=== PATIENT | female | born 1945 | race Caucasian/White ===

== ENCOUNTER → 2019-08-24 08:43 | Outpatient (CLI) | payer MEDICARE, MEDICAID, SELFPAY ==
--- NOTE | 2019-08-24 08:50 | RDU_ITS ---
Reason For Study: hypertensive urgency Right Renal Artery Left Renal Artery Right renal artery ostium 83.4/26.4 Left renal artery ostium 79.5/20.2 RSV/EDV. PSV/EDV. Right renal artery proximal Left renal artery proximal PSV/EDV 93.8/16.1 PSV/EDV. 77.3/26.8 . Right renal artery mid 80.8/16.1 Left renal artery mid 79.5/15.8 PSV/EDV. PSV/EDV . Right renal artery distal 65.3/21.2 Left renal artery distal 91.2/23.3 PSV/EDV. PSV/EDV. Right Renal Parenchyma Left Renal Parenchyma Upper Pole Medula 24.8/6.7 PSV/EDV. Left upper pole medulla 14.8/5.7 Right upper pole medulla EDR .27 . PSV/EDV . Right upper pole medulla R.I. .73 . Left upper pole medulla EDR .38 . Upper Chance Cortx 21.0/6.7 PSV/EDV. Left upper pole medulla R.I. .62 . Right upper pole cortex EDR .32 . UP Cortex 14.8/5.7 PSV/EDV. Right upper pole cortex R.I. .68 . Left upper pole cortex EDR .38 . Right lower Pole medulla 21.0/6.7 Left upper pole cortex R.I. .62 . PSV/EDV . Left lower Pole medulla 19.4/6.6 Right lower pole medulla EDR .32 . PSV/EDV . Right lower pole medulla R.I. .68 . Left lower pole medulla EDR .34 . Lower Pole Cortex 11.9/5.4 PSV/EDV. Left lower pole medulla R.I. .66 . Right lower pole cortex EDR .46 . Lower Pole Cortx 13.9/5.7 PSV/EDV. Right lower pole cortex R.I. .54 . Left lower pole cortex EDR .41 . Right Renal Hilar Left lower pole cortex R.I. .59 . Right Hilar avg 32.6/9.3 PSV/EDV. Left Renal Hilar Right hilar acceleration time 40.0 LT Hilar avg 45.8/11.1 PSV/EDV . m/sec. Left hilar acceleration time 70.0 Right Renal Dimensions m/sec. Right kidney size 10.4 cm . Left Renal Dimensions Right cortical dimension 1.03 cm . Left kidney size 8.1 cm . Multiple hypoechoic areas on the Left cortical dimension 1.38 cm . right kidney. Multiple hypoechoic areas on the left kidney. Aorta Proximal abdominal aorta 1.27 x 1.27 cm . Proximal abdominal aorta peak systolic velocity is 162.4 cm/sec . Distal abdominal aorta 1.61 x 1.69 cm . Distal abdominal aorta peak systolic velocity is 126.8 cm/sec . Normal renal veins bilat. Interpretation Summary Dimensions of the intra-abdominal aorta appear normal, without evidence of aneurysmal dilatation. Renal artery velocities are bilaterally normal. Acceleration times are normal bilaterally. There is no evidence of hemodynamically significant renal artery stenosis on either side. Renovascular resistance appears to be bilaterally normal . Cortical dimensions are bilaterally normal. The right kidney is normal in size. The left kidney is small in size. Multiple hypoechoic structures are noted in the kidneys bilaterally. These may represent renal cysts. Clinical correlation is advised. Ordering Physician: Celio Brewer Performed By: Young Lucero RVT
== END ==
PROVIDERS: Referring Provider Internal Medicine Nephrology; Visit Provider Internal Medicine Nephrology
DX: I10 Essential (primary) hypertension (principal)
CPT/HCPCS: 93975

== ENCOUNTER → 2022-01-03 | Outpatient (REF) | payer SELFPAY ==
[2022-01-03 08:40] LABS: Absolute Lymphocyte Count 1.51 X10^3/uL (0.83-4.51); Absolute Neutrophil Count 3.3 X10^3/uL (2.0-7.7); Basophil# 0.06 X10^3/uL; Basophil% 1.1 % (0-1); Eosinophil# 0.15 X10^3/uL; Eosinophils% 2.7 % (0-5); Hematocrit 27.4 % (37-47); Lymphocyte # 1.51 X10^3/ul (0.83-4.51); Lymphocyte % 26.7 % (19-41); Mean Corp Hgb Conc 29.2 g/dL (32-36); Mean Corpuscular Hgb 29.5 pg (27.0-32.0); Mean Corpuscular Volume 101.1 fL (81-99); Mean Platelet Vol. 10.1 fl (6.2-12.0); Monocyte% 10.6 % (0-10); NRBC Flagged by Analyzer 0 % (0-5); Neutrophil # 3.27 X10^3/uL (2.7-7.7); Neutrophil % 57.8 % (47-70); Platelet Count 342 K/mm3 (150-450); RBC Distribution Width CV 18.6 % (11.6-14.6); RBC Distribution Width SD 64.4 fl (35.1-43.9); Red Blood Count 2.71 M/mm3 (4.2-5.4); White Blood Count 5.7 K/mm3 (4.4-11.0)
[2022-01-03 08:47] LABS: Anion Gap 2 (5-15); BUN 30 mg/dL (7-18); BUN/Creat Ratio 6.9 RATIO (10-20); Calcium,Total 10.3 mg/dL (8.5-10.1); Chloride 107 mmol/L (98-107); Creatinine, Serum 4.35 mg/dL (0.55-1.02); EST Glomerular Filtration Rate 11 mL/min (>60); Est Glom Filt Rate - Afr Amer 13 mL/min (>60); Glucose 60 mg/dL (74-106); Potassium 4.6 mmol/L (3.5-5.1); Sodium Level 143 mmol/L (136-145)
== END | disposition home or self-care (01) ==
LOC: OLS.SW300 05:57
PROVIDERS: Visit Provider Internal Medicine
DX: N18.6 End stage renal disease (principal); Z99.2 Dependence on renal dialysis; K86.2 Cyst of pancreas
CPT/HCPCS: 36415; 80048; 85025

== ENCOUNTER → 2022-01-09 | Outpatient (REF) | payer SELFPAY ==
[2022-01-09 09:20] LABS: Absolute Lymphocyte Count 1.18 X10^3/uL (0.83-4.51); Absolute Neutrophil Count 10.1 X10^3/uL (2.0-7.7); Basophil# 0.03 X10^3/uL; Basophil% 0.2 % (0-1); Eosinophil# 0.11 X10^3/uL; Eosinophils% 0.9 % (0-5); Hematocrit 26.2 % (37-47); Hemoglobin 7.7 g/dL (12.0-15.0); Lymphocyte # 1.18 X10^3/ul (0.83-4.51); Lymphocyte % 9.5 % (19-41); Mean Corp Hgb Conc 29.4 g/dL (32-36); Mean Corpuscular Volume 101.9 fL (81-99); Mean Platelet Vol. 11.6 fl (6.2-12.0); Monocyte# 0.83 X10^3/uL; Monocyte% 6.7 % (0-10); NRBC Flagged by Analyzer 0.2 % (0-5); Neutrophil # 10.12 X10^3/uL (2.7-7.7); Neutrophil % 81.8 % (47-70); POSITIVE MORPHOLOGY YES; Platelet Count 210 K/mm3 (150-450); RBC Distribution Width CV 18.2 % (11.6-14.6); RBC Distribution Width SD 65.5 fl (35.1-43.9); Red Blood Count 2.57 M/mm3 (4.2-5.4); White Blood Count 12.4 K/mm3 (4.4-11.0)
[2022-01-09 09:22] LABS: Differential Indicated SCAN CRITERIA MET
[2022-01-09 09:30] LABS: Amylase 66 U/L (25-115); BUN 42 mg/dL (7-18); BUN/Creat Ratio 9.3 RATIO (10-20); Calcium,Total 9.4 mg/dL (8.5-10.1); Chloride 102 mmol/L (98-107); Creatinine, Serum 4.53 mg/dL (0.55-1.02); EST Glomerular Filtration Rate 10 mL/min (>60); Est Glom Filt Rate - Afr Amer 12 mL/min (>60); Glucose 80 mg/dL (74-106); Lipase 240 U/L (73-393); Phosphorus 2.9 mg/dL (2.5-4.9); Potassium 4.1 mmol/L (3.5-5.1); Sodium Level 138 mmol/L (136-145)
[2022-01-09 10:48] LABS: Differential Comment SCANNED
[2022-01-09 10:49] LABS: Anisocytosis 2+; Macrocytosis 1+; Microcytosis 1+
== END | disposition home or self-care (01) ==
LOC: OLS.SW300 05:00
PROVIDERS: Visit Provider Internal Medicine
DX: R68.89 Other general symptoms and signs (principal); Z13.228 Encounter for screening for other metabolic disorders
CPT/HCPCS: 36415; 80069; 82150; 83690; 85025

== ENCOUNTER → 2022-01-10 | Outpatient (REF) | payer SELFPAY ==
[2022-01-10 19:57] LABS: AST(SGOT) 17 U/L (15-37); Alanine Aminotransfer ALT/SGPT 13 U/L (13-56); Alkaline Phosphatase 117 U/L (45-117); Bilirubin, Direct 0.09 mg/dL (0.00-0.30); Cholesterol 87 mg/dL (200); High Density Lipoprotein 32 mg/dL; Triglycerides 93 mg/dL; Very Low Density Lipoprotein 19 mg/dL (5-40)
== END | disposition home or self-care (01) ==
LOC: OLS.SW300 15:05
PROVIDERS: Referring Provider Internal Medicine; Visit Provider Internal Medicine
DX: R53.83 Other fatigue (principal); R41.0 Disorientation, unspecified; I95.9 Hypotension, unspecified
CPT/HCPCS: 36415; 80061; 80076

== ENCOUNTER → 2022-01-15 | Outpatient (REF) | payer SELFPAY ==
[2022-01-15 07:34] LABS: Hematocrit 27.9 % (37-47); Hemoglobin 8.1 g/dL (12.0-15.0); Mean Corpuscular Hgb 28.7 pg (27.0-32.0); Mean Corpuscular Volume 98.9 fL (81-99); Mean Platelet Vol. 10.8 fl (6.2-12.0); POSITIVE MORPHOLOGY YES; Platelet Count 132 K/mm3 (150-450); RBC Distribution Width CV 18.6 % (11.6-14.6); RBC Distribution Width SD 65.5 fl (35.1-43.9); Red Blood Count 2.82 M/mm3 (4.2-5.4); White Blood Count 8.2 K/mm3 (4.4-11.0)
[2022-01-16 07:45] LABS: Amylase 110 U/L (25-115); BUN 36 mg/dL (7-18); BUN/Creat Ratio 8.5 RATIO (10-20); Calcium,Total 9.2 mg/dL (8.5-10.1); Chloride 100 mmol/L (98-107); Creatinine, Serum 4.22 mg/dL (0.55-1.02); EST Glomerular Filtration Rate 11 mL/min (>60); Est Glom Filt Rate - Afr Amer 13 mL/min (>60); Glucose 90 mg/dL (74-106); Lipase 392 U/L (73-393); Potassium 4.1 mmol/L (3.5-5.1); Sodium Level 142 mmol/L (136-145)
[2022-01-16 08:07] LABS: Basophil% 0.4 % (0-1); Eosinophils% 0.4 % (0-5); Monocyte% 7.8 % (0-10); Neutrophil % 67.2 % (47-70)
[2022-01-16 08:08] LABS: Absolute Lymphocyte Count 1.89 X10^3/uL (0.83-4.51); Absolute Neutrophil Count 5.5 X10^3/uL (2.0-7.7); Basophil# 0.03 X10^3/uL; Eosinophil# 0.03 X10^3/uL; Lymphocyte # 1.89 X10^3/ul (0.83-4.51); Monocyte# 0.64 X10^3/uL; Neutrophil # 5.51 X10^3/uL (2.7-7.7)
[2022-01-16 09:25] LABS: Vitamin D,25 Hydroxy 50.2 ng/mL
== END | disposition home or self-care (01) ==
LOC: OLS.SW300 06:30
PROVIDERS: Visit Provider Internal Medicine
DX: I12.0 Hypertensive chronic kidney disease with stage 5 chronic kidney disease or end stage renal disease (principal); R68.89 Other general symptoms and signs; Z13.228 Encounter for screening for other metabolic disorders; N18.9 Chronic kidney disease, unspecified
CPT/HCPCS: 36415; 80069; 82150; 82306; 83690; 85025

== ENCOUNTER 2022-01-16 14:11 | Emergency (ER) | payer MEDICARE, MEDICAID, SELFPAY ==
[2022-01-16 14:12] VITALS: BP 84/66; PULSE 90; RESP 10; TEMP 36.7; O2SAT 99; BMI 20.2
[2022-01-16 14:16] VITALS: BP 91/62; PULSE 91; RESP 23; O2SAT 99
--- NOTE | 2022-01-16 14:40 | CT_ITS ---
STUDY: CT ABDOMEN AND PELVIS WITHOUT CONTRAST REASON FOR EXAM: Female, 76 years old. pain, EMESIS 2-3 DAYS RADIATION DOSAGE (If Supplied By Facility): CTDIvol = ( 6.08 ) mGy, DLP = ( 440.36 ) mGycm TECHNIQUE: Transaxial images were obtained from the dome of the diaphragm to the symphysis pubis without oral contrast, and without intravenous contrast. Sagittal and coronal images were reconstructed. Individualized dose optimization techniques were used for this CT. COMPARISON: None. FINDINGS: Small left pleural effusion with compressive atelectasis. The visualized portions of the heart are within normal limits. Extensive linear air throughout the liver extending to the periphery compatible with portal venous gas. Gallbladder is surgically absent. Dilation of the extrahepatic bile duct measures up to 10 mm. Multiple hepatic cysts. No required imaging follow-up needed given high likelihood of benign nature. Normal spleen. The pancreas is atrophic. The pancreatic head, there is a cystic structure measuring 1.7 cm just medial to the common duct on image 58 of series 2. Normal bilateral adrenal glands. Bilateral simple renal cysts. No required imaging follow-up needed given high likelihood of benign nature. No hydronephrosis. Bilateral renal cortical atrophy. Gastric wall thickening with nondependent air seen along the periphery of the stomach (image 75 series 2) suggesting gastric pneumatosis. Wall thickening of the distal stomach extending into the proximal duodenum (image 67 series 2), just adjacent to the ampulla. No dilated loops of small bowel. There are multiple colonic diverticula consistent with diverticulosis. The appendix is not seen. There is diffuse atherosclerotic calcification of the abdominal aorta, without a demonstrated aneurysm. Normal inferior vena cava. Normal retroperitoneum. Normal urinary bladder. Normal abdominal wall. Degenerative changes of the lumbar spine. CT/Abdomen/Pelvis without Cont IMPRESSION: 1. 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 Portal venous gas. Surgical consultation recommended. 2. 1.7 cm cystic lesion of the pancreatic head. Pancreatic protocol MRI recommended. 3. Chronic changes, as above. Electronically Signed: Miguel Bilss MD ([place]) at 15:41 EDT ,
--- NOTE | 2022-01-16 14:41 | EKG12_ITS ---
Test Reason : Blood Pressure : / mmHG Vent. Rate : 090 BPM Atrial Rate : 090 BPM P-R Int : 120 ms QRS Dur : 078 ms QT Int : 370 ms P-R-T Axes : 060 001 027 degrees QTc Int : 452 ms Normal sinus rhythm Low voltage QRS Nonspecific ST abnormality Abnormal ECG Confirmed by SHELLEY MESSER, FLAVIO ([id number]), health editor GERMAN WELLS ([id number]) on 01/17/2022 11:11:03 AM Referred By: SCOTT Confirmed By:FLAVIO ROSA MD
--- NOTE | 2022-01-16 14:43 | EDS_ITS ---
HPI HPI - GI History of Present Illness Chief Complaint: GI Bleed Informant: patient Narrative Narrative: Patient presents with not feeling well for about a week. It sounds like she has been vomiting some black material occasionally red for a few days to a week. She is at a nursing facility. She has not yet been seen for this. It appears as though she may have dropped her blood pressure after dialysis today and vomited some black material which prompted her arrival here. However, she has had symptoms that started about a week ago originally. Patient denies history of GI bleed. She has had pancreatitis for unknown reasons. She has on Eliquis which she states is her intermittent atrial fibrillation although that is not on her diagnosis list. Patient had a left total knee replacement back in September at [facility]. Few days after surgery she fell and broke her right patella. This prevented returning home and rehab. She has been in care home since then. She is on dialysis this predated her surgery. According to her chart she gets dialysis Friday, Friday, Friday and Friday. [facility] Medical History (Updated 01/16/22 @ 20:[address] Baldemar Garcia MD) Acute respiratory failure with hypoxia Anemia Anemia in chronic kidney disease Anxiety Anxiety disorder, unspecified ARDS (adult respiratory distress syndrome) Dependence on renal dialysis Depression Disease of pancreas, unspecified End stage renal disease Gastro-esophageal reflux disease without esophagitis GERD (gastroesophageal reflux disease) Hyperlipidemia Hypertension Hypertensive chronic kidney disease with stage 5 chronic kidney disease or end stage renal disease Hypo-osmolality and hyponatremia Hypotension, unspecified Idiopathic gout, unspecified site Insomnia, unspecified Other acute pancreatitis without necrosis or infection Other constipation Pain in left knee Pain in right knee Pneumonitis due to inhalation of food and vomit Unspecified abdominal pain Unspecified ovarian cyst, left side Home Medications allopurinol 100 mg PO BID 01/16/22 [History Last Taken Unknown] apixaban [Eliquis] 2.5 mg PO BID 01/16/22 [History Last Taken Unknown] atorvastatin 20 mg PO QHS 01/16/22 [History Last Taken Unknown] bisacodyl 5 mg PO DAILY 01/16/22 [History Last Taken Unknown] calcium acetate(phosphat bind) 667 mg PO TIDCM 01/16/22 [History Last Taken Unknown] carvedilol 6.25 mg PO BID 01/16/22 [History Last Taken Unknown] cholecalciferol (vitamin D3) 1,250 mcg PO MOWEFR 01/16/22 [History Last Taken Unknown] melatonin 5 mg PO QHS 01/16/22 [History Last Taken Unknown] multivitamin 1 tab PO DAILY 01/16/22 [History Last Taken Unknown] pantoprazole 20 mg PO BID 01/16/22 [History Last Taken Unknown] polyethylene glycol 3350 17 g PO DAILY 01/16/22 [History Last Taken Unknown] pravastatin 80 mg PO QHS 01/16/22 [History Last Taken Unknown] quetiapine 12.5 mg PO QHS 01/16/22 [History Last Taken Unknown] sertraline 25 mg PO DAILY 01/16/22 [History Last Taken Unknown] sucralfate 1 g PO QHS 01/16/22 [History Last Taken Unknown] Allergy/AdvReac Type Severity Reaction Status Date / Time chocolate flavor AdvReac hypertensio Verified 01/16/22 14:58 n lorazepam [From Ativan] AdvReac hallucinati Verified 01/16/22 14:58 ons promethazine [From Phenergan] AdvReac hallucinati Verified 01/16/22 14:58 ons Social History Smoking Status: Never smoker ROS ROS ED Constitutional Constitutional ED: Denies chills or fever(s) ENT ENT ED: Denies rhinorrhea Cardiovascular Cardiovascular: Denies chest pain Respiratory/Chest Respiratory/Chest: Denies cough or dyspnea Gastrointestinal Gastrointestinal: Reports abdominal pain, melena, nausea, vomiting and other Details: Patient complains of soreness in her abdomen for about a month. She states is not notably worse today. Her appetite has been down and she has had some nausea and vomiting for almost a week. This is intermittent. She may have had some black bowel movements but is not 100% sure. ; Denies diarrhea Genitourinary Genitourinary ED: Denies dysuria Musculoskeletal Musculoskeletal: Denies myalgias Integumentary Denies rash Neurologic Neurologic: Reports other Details: Generalized but no focal weakness Hematologic/Lymphatic Hematologic/Lymphatic: Reports easy bleeding and easy bruising Allergic/Immunologic Allergic/Immunologic ED: Denies urticaria EXAM Physical Exam Const Vital Signs: 01/16/22 14:12 01/16/22 14:16 01/16/22 16:12 Temperature 98.0 F Temperature Source Temporal Pulse Rate 90 91 89 Respiratory Rate 10 L 23 H Blood Pressure 84/66 L 91/62 Blood Pressure Mean 72 71 Pulse Ox 99 99 Oxygen Delivery Method Room Air Room Air Oxygen Flow Rate (L/min) 01/16/22 16:16 01/16/22 17:00 01/16/22 17:36 Temperature 97 F L 97.1 F L Temperature Source Temporal Temporal Pulse Rate 90 85 86 Respiratory Rate 16 19 H 14 Blood Pressure 91/61 81/58 L 103/72 Blood Pressure Mean 71 65 82 Pulse Ox 100 100 100 Oxygen Delivery Method Nasal Cannula Nasal Cannula Oxygen Flow Rate (L/min) 2 2 Patient looks somewhat pale and mildly ill. She is awake alert and appropriate. She is initially slow to answer but as I talked to her more and more she gets better. She has faster to answer and seems to know her history pretty well. The history that she does know is consistent with her med chart from the nursing facility. However, she adds more details than that are on that also. Positive well nourished and well developed General Appearance ED: well developed and pallor HEENT normocephalic and atraumatic Eyes General Eye ED: Yes pale conjunctiva; Negative for scleral icterus Neck no JVD Resp normal respiratory effort and clear to auscultation bilaterally Cardio regular rate GI non-tender and non-distended GI Narrative: Despite some abdominal discomfort, there is no tenderness on exam. There does appear to be some Dermabond on the left abdomen for an abrasion recently. Auscultation: normoactive bowel sounds Palpation: soft Back/Spine no CVA tenderness Extremity Extremity Narrative: Patient does have peripheral edema some in the upper and lower extremities. She states this has been there since her hospitalization. Neuro Neuro Narrative: Patient is initially slow to answer questions but she is alert and oriented fully. Sensorium / Orientation: alert, oriented to person, oriented to place and oriented to time Psych mental status grossly normal Skin Skin Narrative: No petechiae or purpura but she does have pallor. General Skin Exam: pallor MDM MDM MDM Narrative Medical decision making narrative: On my initial visit I explained to the patient that she will need a transfusion. We discussed risks and benefits. I explained that with her recurrent bleeding, Eliquis, low blood pressure and paleness she will need blood and she agreed to this. My initial impression is that this was likely a GI bleed based on the history. However, the patient was having pain looked ill. We did CT scan. The CT scan shows air throughout the liver with thickening of the gastric wall with air and air into the proximal duodenum. Patient's mean blood pressure is 68 at this time. I did discuss case with our surgeon. He reviewed the CT report. This may be ischemic. The problem is that this patient is quite ill and may need a very significant surgery on an already ill patient. This is likely beyond the capabilities that we have at this facility. I called [facility]. They are tight on beds but they are calling me back to see if they can accept this patient. I did explain the very concerning findings and potentially poor outcome to the patient. At this time, we will hold off on blood transfusion and give IV fluids as I think this is more of a sepsis type picture. We will give a small dose of fentanyl for discomfort. Also giving antibiotics. I discussed the case with Dr. Jame Robledo at [facility]. He will accept in transfer. Patient had a blood pressure 99/77 and was feeling a bit better when she left. Lab Data Labs: Laboratory Results - last 24 hr 01/16/22 01/16/22 01/16/22 14:35 14:35 14:35 WBC 14.7 H RBC 3.50 L Hgb 10.2 L Hct 33.9 L MCV 96.9 MCH 29.1 MCHC 30.1 L RDW Std Deviation 64.6 H RDW Coeff of Vaishnavi 18.5 H Plt Count 135 L MPV 10.4 Immature Gran % (Auto) 1.200 H Neut % (Auto) 87.0 H Lymph % (Auto) 9.2 L [place] % (Auto) 2.3 Eos % (Auto) 0.1 Baso % (Auto) 0.2 Absolute Neuts (auto) 12.8 H Absolute Lymphs (auto) 1.36 Nucleated RBC % 0.1 Sodium 138 Potassium 3.3 L Chloride 97 L Carbon Dioxide 32.0 Anion Gap 9 BUN 30 H Creatinine 3.49 H Estim Creat Clear Calc 11.94 Est GFR (MDRD) Af Amer 16 L Est GFR (MDRD) Non-Af 14 L BUN/Creatinine Ratio 8.6 L Glucose 162 H Lactic Acid Calcium 9.5 Total Bilirubin 0.20 AST 49 H ALT 16 Alkaline Phosphatase 105 Troponin I High Sens 178 H* Total Protein 4.6 L Albumin 1.3 L Globulin 3.3 Albumin/Globulin Ratio 0.4 L Lipase 302 Blood Type O POSITIVE Antibody Screen NEGATIVE Crossmatch See Detail 01/16/22 14:50 WBC RBC Hgb Hct MCV MCH MCHC RDW Std Deviation RDW Coeff of Vaishnavi Plt Count MPV Immature Gran % (Auto) Neut % (Auto) Lymph % (Auto) [place] % (Auto) Eos % (Auto) Baso % (Auto) Absolute Neuts (auto) Absolute Lymphs (auto) Nucleated RBC % Sodium Potassium Chloride Carbon Dioxide Anion Gap BUN Creatinine Estim Creat Clear Calc Est GFR (MDRD) Af Amer Est GFR (MDRD) Non-Af BUN/Creatinine Ratio Glucose Lactic Acid 3.4 H* Calcium Total Bilirubin AST ALT Alkaline Phosphatase Troponin I High Sens Total Protein Albumin Globulin Albumin/Globulin Ratio Lipase Blood Type Antibody Screen Crossmatch Radiography Diagnostic Testing: Clinical Impression(s) from Imaging Studies Abdomen/Pelvis CT 01/16/22 14:40 IMPRESSION: 1. 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 Portal venous gas. Surgical consultation recommended. 2. 1.7 cm cystic lesion of the pancreatic head. Pancreatic protocol MRI recommended. 3. Chronic changes, as above. Electronically Signed: Miguel Bliss MD ([place]) at 15:41 EDT Reading Location ID and State: [address] [place] [address] , Service support , EKG Initial EKG: Comments: EKG done as part of the work-up of GI bleed and hypotension. EKG shows normal sinus rhythm with a rate of 98. Mild low voltage. No acute ST elevation or depression. PA interval, QRS duration and QTc are normal. Critical Care Time Critical care time (excluding procedures): 30-74 minutes, Discussing w/Patient &/or Family/Clinical Technician, Discussing w/Consultants, Arranging Admission or Transfer, Performing Direct Patient Care at Bedside and - (55 minutes: Multiple rechecks, altering therapy, meds, discussion with cloud consultant patients and staff) Discharge Plan Triage Chief Complaint: GI Bleed ED Provider: Baldemar Garcia Dx/Rx/DC Orders Clinical Impression: Pneumatosis of intestines, Ischemia, bowel, Sepsis, Lactic acidosis Prescriptions: No Action multivitamin Tablet 1 tab PO DAILY RF: 0 carvedilol 25 mg tablet 6.25 mg PO BID RF: 0 atorvastatin 20 mg Tablet 20 mg PO QHS RF: 0 allopurinol 100 mg tablet 100 mg PO BID RF: 0 pantoprazole 20 mg Tablet,Delayed Release (Dr/Ec) 20 mg PO BID RF: 0 pravastatin 80 mg tablet 80 mg PO QHS RF: 0 bisacodyl 5 mg Tablet,Delayed Release (Dr/Ec) 5 mg PO DAILY RF: 0 polyethylene glycol 3350 17 gram/dose Powder 17 g PO DAILY RF: 0 calcium acetate(phosphat bind) 667 mg capsule 667 mg PO TIDCM RF: 0 melatonin 5 mg Tablet 5 mg PO QHS RF: 0 cholecalciferol (vitamin D3) 1,250 mcg (50,000 unit) Tablet 1,250 mcg PO MOWEFR RF: 0 Eliquis 2.5 mg tablet 2.5 mg PO BID RF: 0 quetiapine 25 mg Tablet 12.5 mg PO QHS RF: 0 sucralfate 1 gram tablet 1 g PO QHS RF: 0 sertraline 25 mg Tablet 25 mg PO DAILY RF: 0 Primary Care Provider: Mini Cooley Referrals: Mini Cooley MD [Primary Care Provider] - Disposition Disposition: Acute Care Hospital Discharge Location: [facility] Discharge Date/Time: 01/16/22 17:53
[2022-01-16 14:52] LABS: Absolute Lymphocyte Count 1.36 X10^3/uL (0.83-4.51); Absolute Neutrophil Count 12.8 X10^3/uL (2.0-7.7); Basophil# 0.03 X10^3/uL; Basophil% 0.2 % (0-1); Eosinophil# 0.01 X10^3/uL; Eosinophils% 0.1 % (0-5); Hematocrit 33.9 % (37-47); Hemoglobin 10.2 g/dL (12.0-15.0); Lymphocyte # 1.36 X10^3/ul (0.83-4.51); Lymphocyte % 9.2 % (19-41); Mean Corp Hgb Conc 30.1 g/dL (32-36); Mean Corpuscular Hgb 29.1 pg (27.0-32.0); Mean Corpuscular Volume 96.9 fL (81-99); Mean Platelet Vol. 10.4 fl (6.2-12.0); Monocyte# 0.34 X10^3/uL; Monocyte% 2.3 % (0-10); NRBC Flagged by Analyzer 0.1 % (0-5); Neutrophil # 12.82 X10^3/uL (2.7-7.7); Platelet Count 135 K/mm3 (150-450); RBC Distribution Width CV 18.5 % (11.6-14.6); RBC Distribution Width SD 64.6 fl (35.1-43.9); White Blood Count 14.7 K/mm3 (4.4-11.0)
[2022-01-16] MEDS: Ondansetron 4 MG/2 ML Vial IV (14:53)
[2022-01-16 15:29] LABS: ALB/GLOB Ratio 0.4 RATIO (0.9-2.4); AST(SGOT) 49 U/L (15-37); Alanine Aminotransfer ALT/SGPT 16 U/L (13-56); Albumin, Serum 1.3 g/dL (3.2-5.0); Alkaline Phosphatase 105 U/L (45-117); Anion Gap 9 (5-15); BUN 30 mg/dL (7-18); BUN/Creat Ratio 8.6 RATIO (10-20); Calcium,Total 9.5 mg/dL (8.5-10.1); Chloride 97 mmol/L (98-107); Creatinine, Serum 3.49 mg/dL (0.55-1.02); EST Glomerular Filtration Rate 14 mL/min (>60); Est Glom Filt Rate - Afr Amer 16 mL/min (>60); Estimated Creatinine Clearance 11.94 ml/min; Globulin 3.3 g/dL (2.2-4.2); Glucose 162 mg/dL (74-106); Lipase 302 U/L (73-393); Potassium 3.3 mmol/L (3.5-5.1); Protein, Total 4.6 g/dL (6.4-8.2); Sodium Level 138 mmol/L (136-145); Troponin-I HS 178 pg/mL (3.0-54.0)
[2022-01-16 15:32] LABS: Lactic Acid 3.4 mmol/L (0.4-1.9)
[2022-01-16 16:12] VITALS: PULSE 89
[2022-01-16 16:16] VITALS: BP 91/61; PULSE 90; RESP 16; TEMP 36.1; O2SAT 100
[2022-01-16] MEDS: fentaNYL 100 MCG/2 ML Ampul 25 MCG IV (16:29)
[2022-01-16] MEDS: 0.9% Normal Saline 1,000 ML 999 ML IV ×2 (16:29→17:43)
[2022-01-16 17:00] VITALS: BP 81/58; PULSE 85; RESP 19; TEMP 36.2; O2SAT 100
[2022-01-16 17:36] VITALS: BP 103/72; PULSE 86; RESP 14; O2SAT 100
[2022-01-16 18:57] LABS: Reflex Lactate? Y
== END 2022-01-16 17:53 | disposition short-term general hospital (02) ==
PROVIDERS: Emergency Provider Emergency Medicine; PCP Internal Medicine; Visit Provider Emergency Medicine
DX: K63.89 Other specified diseases of intestine (principal); A41.9 Sepsis, unspecified organism; I12.0 Hypertensive chronic kidney disease with stage 5 chronic kidney disease or end stage renal disease; N18.6 End stage renal disease; K55.9 Vascular disorder of intestine, unspecified; E78.5 Hyperlipidemia, unspecified; E87.2 Acidosis; K21.9 Gastro-esophageal reflux disease without esophagitis; F41.9 Anxiety disorder, unspecified; F32.A Depression, unspecified; Z79.01 Long term (current) use of anticoagulants; Z79.899 Other long term (current) drug therapy
CPT/HCPCS: 74176; 80053; 83605; 83690; 84484; 85025; 86850; 86900; 86901; 86920; 86922; 87040; 93005; 96365; 96375; 99285; J7030; A4216; J2405